=== PATIENT | male | born 1945 | race American Indian/Alaskan Native ===

== ENCOUNTER 2019-07-04 08:21 | Day surgery (SDC) | payer OTHER ==
[~2019-07-04 08:21] MED LIST: SODIUM CHLORIDE 0.9% 1000 ML 1,000 ML IV SCH
[2019-07-04] MEDS ORDERED: LIDOCAINE MPF (2%) 20 MG/1 ML VIAL 5 ML ONE (09:00)
--- NOTE | 2019-07-04 10:16 | Anesthesia Day of Surgery ---
Anesthesia Day of Surgery - Day of Surgery Patient Examined: Yes Patient H&P Reviewed: Yes Patient is NPO: Yes
--- NOTE | 2019-07-04 10:19 | Anesthesia Consultation ---
Anesthesia Consult and Med Hx Date of service: 07/04/19 - Airway Anesthetic Teeth Evaluation: Dentures, Edentulous ROM Head & Neck: Adequate Mallampati Class: Class II Intubation Access Assessment: Good - Pre-Operative Health Status ASA Pre-Surgery Classification: ASA3 Proposed Anesthetic Plan: MAC - Pulmonary Hx Respiratory Symptoms: No (Active-walks 30 minutes 3x/week and states he can climb 2FS) Hx Sleep Apnea: No - Cardiovascular System Hx Hypertension: Yes Hx Coronary Artery Disease: Yes (Stent 2001; [place] 2012-Medical Management) Hx Heart Attack/AMI: Yes Hx Peripheral Vascular Disease: Yes - Central Nervous System CVA: Yes - Gastrointestinal Hx Gastroesophageal Reflux Disease: Yes (In the past)
[2019-07-04] MEDS ORDERED: propofoL 200 MG/20 ML VIAL IV ONE ×2 (10:50)
--- NOTE | 2019-07-04 11:27 | Procedure Note ---
Date of procedure: 07/04/19 Pre-op diagnosis: Colon Polyps Screening/ F/H/O Cancer (mopther- Breast cancer)/ P/H/O Prosta Post-op diagnosis: other (No Colon Polyps or Diverticular Disease noted/ Melanosis Coli/ Mild to Moderate Internal Hemorrhoid) Procedure: Colonoscopy Anesthesia: MAC Surgeon: KRISTIN BECKFORD Estimated blood loss: none Pathology: none Condition: stable Disposition: same day (Resume home medication and follow up in 1 to 2 weeks ([phone]).)
--- NOTE | 2019-07-04 11:47 | Operative Report ---
INDICATIONS: A 73-year-old -[place] gentleman with a family history of cancer. The patient's mother had breast cancer. The patient has prior history of prostate cancer. He has had colon polyps in the past. Repeat colonoscopy was done as part of colon polyp screening to make sure there was not any recurrence of any polyps. PROCEDURE IN DETAIL: The procedure was done after getting informed consent. Initial rectal exam was unremarkable. Instrument was passed through the rectum onto the cecum, which was identified by the ileocecal valve and the appendiceal orifice. Visualization was fair to good. The cecum was also examined on the retroverted view. No additional pathology was noted. Cecum, ascending colon, transverse colon, descending colon, and sigmoid showed normal mucosa other than for the presence of melanosis coli, which was moderate in type and the rectum showed mild to moderate internal hemorrhoids. There were no biopsies done. No bleeding associated with the procedure. No complications associated with the procedure. Procedure was done in the GI lab with assistance of the GI lab team which included Archana Morales as well as Michelle sow and with the assistance of Anesthesia. ASSESSMENT: Colon polyp screening, family history of cancer, mother had breast cancer, past history of prostate cancer. No colon polyps or diverticula. Noted melanosis coli, mild to moderate internal hemorrhoid. The patient will be asked to resume home medication and follow up in the office in 1-2 weeks' time. JOB# [id number] LAYA/MARCUS
[2019-07-04 11:53] VITALS: BP 151/80
--- NOTE | 2019-07-04 12:52 | Post Anesthesia Evaluation ---
- Post Anesthesia Evaluation Patient Participated: Yes Airway Patent: Yes Stable Respiratory Function: Yes Nausea/Vomiting: No Temp > 96.8F: Yes Pain Manageable: Yes Adequeate Hydration: Yes Anesthesia Complications: No Block Receding Appropriately: Not Applicable Patient on Ventilator: No
== END 2019-07-04 08:22 | disposition home or self-care (01) ==
LOC: GIO 08:21
DX: Z12.11 Encounter for screening for malignant neoplasm of colon (principal); K64.8 Other hemorrhoids; K63.89 Other specified diseases of intestine; I10 Essential (primary) hypertension; I25.10 Atherosclerotic heart disease of native coronary artery without angina pectoris; K21.9 Gastro-esophageal reflux disease without esophagitis; I73.9 Peripheral vascular disease, unspecified; Z86.73 Personal history of transient ischemic attack (TIA), and cerebral infarction without residual deficits; Z80.0 Family history of malignant neoplasm of digestive organs; Z80.3 Family history of malignant neoplasm of breast; Z85.46 Personal history of malignant neoplasm of prostate; Z86.010 Personal history of colon polyps; Z88.2 Allergy status to sulfonamides
CPT/HCPCS: 45378; J2704; J7030

== ENCOUNTER 2019-10-17 06:53 | Day surgery (SDC) | payer OTHER ==
[2019-10-17] MEDS ORDERED: SODIUM CHLORIDE 0.9% 1000 ML 1,000 ML IV SCH (07:30)
--- NOTE | 2019-10-17 08:03 | Anesthesia Consultation ---
Anesthesia Consult and Med Hx Date of service: 10/17/19 - Airway Anesthetic Teeth Evaluation: Dentures ROM Head & Neck: Adequate Mental/Hyoid Distance: Adequate Mallampati Class: Class II Intubation Access Assessment: Probably Good - Pulmonary Exam CTA: Yes - Pre-Operative Health Status ASA Pre-Surgery Classification: ASA3 Proposed Anesthetic Plan: MAC - Pulmonary Hx Smoking: No (Quit in 2001) Hx Respiratory Symptoms: No (Active-walks 30 minutes 3x/week and states he can climb 2FS) Hx Sleep Apnea: No - Cardiovascular System Hx Hypertension: Yes Hx Coronary Artery Disease: Yes (Stent 2001; [place] 2012-Medical Management) Hx Heart Attack/AMI: Yes (2012) Hx Peripheral Vascular Disease: Yes - Central Nervous System Hx Seizures: No CVA: Yes (Not confirmed clinically) - Gastrointestinal Hx Gastroesophageal Reflux Disease: Yes (In the past) - Endocrine Hx Renal Disease: No Hx Liver Disease: No Hx Insulin Dependent Diabetes: No Hx Non-Insulin Dependent Diabetes: No Hx Thyroid Disease: No - Other Systems Hx Alcohol Use: No Hx Obesity: No (Overweight- BMI 30.2kg) - Additional Comments Anesthesia Medical History Comments: Patient denied previous anesthesia problems
--- NOTE | 2019-10-17 08:08 | Anesthesia Day of Surgery ---
Anesthesia Day of Surgery - Day of Surgery Patient Examined: Yes Patient H&P Reviewed: Yes Patient is NPO: Yes Beta Blockers: No Cardiac Clearance: No Pulmonary Clearance: No
[2019-10-17] MEDS ORDERED: ONDANSETRON 4 MG/2 ML INJ ONE (08:15)
[2019-10-17] MEDS ORDERED: LIDOCAINE MPF (2%) 20 MG/1 ML VIAL 5 ML ONE (08:15)
[2019-10-17] MEDS ORDERED: fentaNYL 100 MCG/2 ML INJ ONE (08:16)
[2019-10-17] MEDS ORDERED: propofoL 200 MG/20 ML VIAL IV ONE (08:16)
--- NOTE | 2019-10-17 08:59 | Procedure Note ---
Date of procedure: 10/17/19 Pre-op diagnosis: GERD Post-op diagnosis: other (Mild to Moderate Erosive Esophagitis/Small to Medium Hiatal Hernai/Gastritis/Duodenal Bulb AVM (treated with APC).) Procedure: EGD with biopsy and APC laser treatment Anesthesia: MAC Surgeon: KRISTIN BECKFORD Estimated blood loss: minimal Pathology: list Specimen disposition: to lab Condition: stable Disposition: same day (Avoid aspirin and NSAID and anticoagulants for 5 days; otherwise resume home medication. Follow up in 1 to 2 weeks ([phone]).)
--- NOTE | 2019-10-17 09:27 | Operative Report ---
PROCEDURE: Esophagogastroduodenoscopy with biopsy and APC laser use. INDICATIONS: This is a 73-year-old -[place] gentleman who has been having GERD symptoms. EGD was done to assess for that. He has previously had a colonoscopy done, which showed presence of melanosis coli. DESCRIPTION OF PROCEDURE: EGD was done after getting informed consent with MAC anesthesia. Instrument was passed through the hypopharynx into the esophagus, which showed mild to moderate distal erosive esophagitis. Photo documentation and biopsy was obtained from there. The stomach also showed a small to medium size hiatal hernia and antral gastritis. Biopsy was done from the gastric antrum, gastric body and angular incisura to rule out for H. pylori and atrophic gastritis with minimal bleeding. The pylorus was patent. 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 This was treated with APC laser without any bleeding. Second portion appeared normal. 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 PLAN: To treat the patient with PPI, have the patient avoid aspirin and aspirin-related products for the next few days and also advised the patient about lifestyle changes because the patient has a small to medium hiatal hernia and have the patient follow up in the office in 1-2 weeks' time. Procedure was done in the GI lab with the assistance of the GI lab team, which included MAGDALENA, Archana Morales, magi Martinez and with the assistance of anesthesia. JOB# [id number] LAYA/MARCUS
[2019-10-17 09:41] VITALS: BP 130/75
== END 2019-10-17 06:54 | disposition home or self-care (01) ==
LOC: GIO 06:53
DX: K21.0 Gastro-esophageal reflux disease with esophagitis (principal); K44.9 Diaphragmatic hernia without obstruction or gangrene; K29.50 Unspecified chronic gastritis without bleeding; B96.81 Helicobacter pylori [H. pylori] as the cause of diseases classified elsewhere; I10 Essential (primary) hypertension; I25.2 Old myocardial infarction; I25.10 Atherosclerotic heart disease of native coronary artery without angina pectoris; I73.9 Peripheral vascular disease, unspecified; E66.9 Obesity, unspecified; Z68.30 Body mass index [BMI] 30.0-30.9, adult; Z95.5 Presence of coronary angioplasty implant and graft; Z88.2 Allergy status to sulfonamides; Z87.891 Personal history of nicotine dependence; Z79.82 Long term (current) use of aspirin; Z79.899 Other long term (current) drug therapy; Z86.73 Personal history of transient ischemic attack (TIA), and cerebral infarction without residual deficits
CPT/HCPCS: 43239; 43270; 88305; 88342; J2405; J2704; J3010; J7030